=== PATIENT | male | born 1950 | race Caucasian/White ===

== ENCOUNTER 2017-06-14 06:55 | Day surgery (SDC) | payer BC, OTHER ==
[2017-06-13 14:10] VITALS: BMI 33.3
[2017-06-14] MEDS ORDERED: PROPOFOL 20 ML ONE ×5 (08:45)
[2017-06-14 09:39] VITALS: TEMP 97.5
[2017-06-14 10:37] VITALS: BP 150/90; PULSE 68
--- NOTE | 2017-06-17 14:09 | PATH ---
Surgical Pathology Report Patient Name: ISABELL JIMENEZ [facility]. Rec. #: [id number] /Age/Gender: 1950 (Age: 67) / M Account: [id number] Location: U-ENDOSCOPY Taken: 06/14/2017 Received: 06/14/2017 Reported: 06/17/2017 Physicians: Nicole Mectalf M.D. Specimen(s) Received A: BX DUODENUM SECOND PORTION AND BULB B: BX ANTRUM C: BX HIATAL HERNIA D: BX ESOPHAGUS DISTAL Clinical History Preoperative diagnosis: Screening malignant, history of colon polyp, occult blood Postoperative diagnosis: Severe reflux esophagitis, hiatal hernia, suspect Frias's esophagus, diverticulosis Final Diagnosis A. DUODENUM, SECOND PORTION/BULB, BIOPSY: DUODENAL MUCOSA WITHOUT SIGNIFICANT PATHOLOGIC FINDINGS. B. STOMACH, ANTRUM, BIOPSY: GASTRIC ANTRAL MUCOSA WITH MILD CHRONIC GASTRITIS. IMMUNOHISTOCHEMICAL STAIN FOR H. PYLORI IS NEGATIVE. C. HIATAL HERNIA, BIOPSY: GASTRIC CARDIAC TYPE MUCOSA WITH MODERATE CHRONIC GASTRITIS. D. DISTAL ESOPHAGUS, BIOPSY: SQUAMOCOLUMNAR MUCOSA WITH MARKED ACUTE ESOPHAGITIS, ULCERATION, AND REACTIVE CHANGES. INTESTINAL METAPLASIA PRESENT CONSISTENT WITH FRIAS'S ESOPHAGUS IN CONCORDANT CLINICAL SETTING. NO DYSPLASIA IDENTIFIED. PAS SPECIAL STAIN IS NEGATIVE. Electronically Signed Caitlyn Shen M.D. Gross Description A. Received in formalin, labeled "biopsy second portion of duodenum and bulb" are 3 ellis, irregular portions of soft tissue ranging from 0.3-0.4 cm. in greatest dimension. The specimens are submitted in toto in one cassette. B. Received in formalin, labeled "biopsy gastric antrum" are 4 ellis, irregular portions of soft tissue ranging from 0.1-0.6 cm. in greatest dimension. The specimens are submitted in toto in one cassette. C. Received in formalin, labeled "biopsy hiatal hernia" are 2 ellis, irregular portions of soft tissue measuring 0.1 and 0.2 cm. in greatest dimension. The specimens are submitted in toto in one cassette. D. Received in formalin, labeled "biopsy distal esophagus" are 4 ellis, irregular portions of soft tissue ranging from 0.1-0.6 cm. in greatest dimension. The specimens are submitted in toto in one cassette. 06/14/201706/14/2017
== END 2017-06-14 10:37 | disposition home or self-care (01) ==
LOC: JASU-ENDO 06:55
PROVIDERS: ATTEND Internal Medicine Gastroenterology
PROC: 0DB68ZX Excision of Stomach, Via Natural or Artificial Opening Endoscopic, Diagnostic (ICD-10-PCS; 2017-06-14)
PROC: 0DB28ZX Excision of Middle Esophagus, Via Natural or Artificial Opening Endoscopic, Diagnostic (ICD-10-PCS; 2017-06-14)
PROC: 0DB38ZX Excision of Lower Esophagus, Via Natural or Artificial Opening Endoscopic, Diagnostic (ICD-10-PCS; 2017-06-14)
PROC: 0DJD8ZZ Inspection of Lower Intestinal Tract, Via Natural or Artificial Opening Endoscopic (ICD-10-PCS; 2017-06-14)
PROC: 0DB98ZX Excision of Duodenum, Via Natural or Artificial Opening Endoscopic, Diagnostic (ICD-10-PCS; principal; 2017-06-14 09:00)
DX: Z12.11 Encounter for screening for malignant neoplasm of colon (principal); Z86.010 Personal history of colon polyps; K57.30 Diverticulosis of large intestine without perforation or abscess without bleeding; K64.8 Other hemorrhoids; K92.1 Melena; K21.0 Gastro-esophageal reflux disease with esophagitis; K44.9 Diaphragmatic hernia without obstruction or gangrene
CPT/HCPCS: 43239; G0105; 88305-TC; 88312-TC; 88342-TC

== ENCOUNTER 2021-02-08 05:02 | Day surgery (SDC) | payer BC, OTHER ==
[2021-02-02 15:58] VITALS: BMI 32.5
[2021-02-08 12:02] VITALS: BP 149/84; PULSE 64; TEMP 98
== END 2021-02-08 12:24 | disposition home or self-care (01) ==
LOC: JASU-ENDO 05:02
PROVIDERS: ATTEND Internal Medicine Gastroenterology
PROC: 0DB78ZX Excision of Stomach, Pylorus, Via Natural or Artificial Opening Endoscopic, Diagnostic (ICD-10-PCS; 2021-02-08)
PROC: 0DB38ZX Excision of Lower Esophagus, Via Natural or Artificial Opening Endoscopic, Diagnostic (ICD-10-PCS; 2021-02-08)
PROC: 0DB48ZX Excision of Esophagogastric Junction, Via Natural or Artificial Opening Endoscopic, Diagnostic (ICD-10-PCS; principal; 2021-02-08 10:00)
DX: K22.70 Barrett's esophagus without dysplasia (principal); K31.7 Polyp of stomach and duodenum; K21.00 Gastro-esophageal reflux disease with esophagitis, without bleeding; K29.40 Chronic atrophic gastritis without bleeding; K44.9 Diaphragmatic hernia without obstruction or gangrene; I10 Essential (primary) hypertension
CPT/HCPCS: 88305-TC; 88342-TC